=== PATIENT | female | born 1965 | race Caucasian/White ===

== ENCOUNTER 2016-06-27 09:00 | Emergency (ER) | payer OTHER ==
[~2016-06-27] VITALS: Ht 172.7 cm; Wt 68.0 kg
[~2016-06-27 09:00] MED LIST: ALPRAZOLAM0.5 MG PO; HYDRODIURIL 2525 MG PO; LOPRESSOR 25MG25 MG PO; VIIBRYD40 MG PO; ZOFRAN4 M1 SL
[2016-06-27 09:04] VITALS: BP 138/86
--- NOTE | 2016-06-27 09:21 | ED NECK/BACK PAIN COMPLAINT ---
History of Present Illness General Chief Complaint: Low Back Pain/Injury Stated Complaint: LOW BACK PAIN Source: patient Exam Limitations: no limitations Vital Signs & Intake/Output Vital Signs & Intake/Output Vital Signs Date Time Temp Pulse Resp B/P B/P Pulse O2 O2 Flow FiO2 Mean Ox Delivery Rate 06/27 0904 96.8 70 15 138/86 99 Room Air Room Air Allergies Coded Allergies: Sulfa (Sulfonamide Antibiotics) (Intermediate, RASH 06/27/16) escitalopram (From LEXAPRO) (Intermediate, RASH 06/27/16) Reconcile Medications Alprazolam 0.5 MG TAB 0.25 MG PO PRN ANXIETY (Reported) Diazepam (Valium) 5 MG TABLET 1 TAB PO Q6-8 PRN muscle relaxant may cause drowsiness Diclofenac Sodium 75 MG TABLET.DR 1 TAB PO BID PRN pain/inflammation Hydrochlorothiazide (Hydrodiuril 25 MG Tab) 25 MG TAB 25 MG PO DAILY HTN ( Reported) Metoprolol Tartrate (Lopressor) 25 MG TAB 25 MG PO DAILY HTN (Reported) VILAZODONE (Viibryd) 40 MG TAB 20 MG PO DAILY DEPRESSION (Reported) Triage Note: PT TO ED FOR BACK TIGHTNESS THAT STARTED FRIDAY AFTER DOING LOTS OF YARD WORK. WENT TO WALK IN CLINIC FRIDAY AND WAS PRESCRIBED NAPROXEN AND FLEXERIL WITHOUT RELIEF. PAIN OCCASIONALLY RADIATES TO R LEG. Triage Nurses Notes Reviewed? yes HPI: Patient is a 50-year-old female presents complaining of back spasms. Patient reports symptoms began over the weekend when she was doing a lot of yard work. Pain is a pulling/spasming sensation currently severe. Patient was seen at an urgent care clinic on Friday and placed on naproxen and Flexeril with no improvement. Patient has also been doing hot water bottles to the areas with minimal improvement. Patient denies falls, numbness, weakness, incontinence, abdominal pain. Past History Travel History Traveled to [place] past 21 day No Medical History Any Pertinent Medical History? 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 No Review of Systems Review of Systems Constitutional: Denies: chills, fever. Cardiovascular: Denies: chest pain. Gastrointestinal/Abdominal: Denies: abdominal pain. Musculoskeletal: Reports: see HPI. Skin: Reports: no symptoms. Neurological/Psychological: Denies: numbness, paresthesia. Physical Exam Physical Exam General Appearance: well developed/nourished, alert, awake Head: atraumatic, normal appearance Eyes: Bilateral: normal appearance, PERRL, EOMI. Ears, Nose, Throat, Mouth: hearing grossly normal, moist mucous membrane Neck: normal inspection, supple, full range of motion Respiratory: normal breath sounds, no respiratory distress, lungs clear Cardiovascular: regular rate/rhythm Gastrointestinal: soft, non-tender Back: bilateral muscle spasm inferior thoracic left greater than right Extremities: non-tender, normal range of motion Straight Leg Raising: Right: Negative. Left: Negative. DTR: Patellar: 2: L4 Right, L4 Left. Achilles: 2: S1 Right, S1 Left. Neurologic/Psych: no motor/sensory deficits, awake, alert, oriented x 3, normal gait, normal mood/affect Skin: intact, normal color, warm/dry Progress Differential Diagnosis: cauda equina syn, herniated disc, myofascial strain, sciatica, spinal cord inj, T/L spine injury, MUSCLE SPASMS Plan of Care: No acute red flags on exam or by history. Appears stable for conservative management and outpatient follow-up. Departure Departure Time of Disposition: 931 Disposition: HOME OR SELF CARE Condition: Stable Clinical Impression Primary Impression: Spasm of back muscles Referrals: GIORGI FALK,KASSANDRA MORENO MD,[facility] PATIENT HAS NO PRIMARY CARE DR (PCP/Family) Additional Instructions: Follow-up with one of the [facility] primary care providers to establish primary care. Also provided is information for Dr. Moreno and Dr. Ulloa(back specialists). If no improvement within 1 week then contact them for further evaluation. Apply heat to the affected areas for 20 minutes 4-5 times a day. Return to the ER if numbness, weakness, incontinence or worsening of symptoms. Departure Forms: Customer Survey General Discharge Information Prescriptions: Current Visit Scripts Diazepam (Valium) 1 TAB PO Q6-8 PRN muscle relaxant #12 TAB may cause drowsiness Diclofenac Sodium 1 TAB PO BID PRN pain/inflammation #15 TAB
[2016-06-27] MEDS ORDERED: DICLOFENAC SODI75 M2 PO (09:36)
[2016-06-27] MEDS ORDERED: VALIUM5 M2 PO (09:36)
== END 2016-06-27 09:43 ==
LOC: ERH 09:00
DX: M62.830 Muscle spasm of back (principal)

== ENCOUNTER 2016-07-30 20:05 | Emergency (ER) | payer OTHER ==
[~2016-07-30] VITALS: Ht 172.7 cm; Wt 68.0 kg
[~2016-07-30 20:05] MED LIST changes: +DICLOFENAC SODI75 M2 PO; +VALIUM5 M2 PO
[2016-07-30 20:21] VITALS: BP 188/99
[2016-07-30 20:46] LABS: ABSOLUTE BASOPHIL COUNT 0.1 /CUMM (0.0-0.2); ABSOLUTE EOSINOPHIL COUNT 0.2 /CUMM (0.0-0.7); ABSOLUTE GRANULOCYTE CT 5.8 /CUMM (1.4-6.5); ABSOLUTE MONOCYTE COUNT 0.6 /CUMM (0.10-0.60); BASOPHIL % 0.5 % (0.0-2.0); EOSINOPHIL % 1.8 % (0-5); GRANULOCYTE % 54.6 % (42.2-75.2); HEMATOCRIT 44.3 % (37-47); MEAN CORPUSCULAR HGB 30.2 PG (27.0-31.0); MEAN CORPUSCULAR HGB CONC 33.8 G/DL (33.0-37.0); MEAN CORPUSCULAR VOLUME 89.2 FL (81.0-99.0); MEAN PLATELET VOLUME 7.4 FL (7.4-10.4); PLATELET COUNT 294 /CUMM (130-400); RBC DISTRIBUTION WIDTH 14.1 % (11.5-14.5); RED BLOOD CELL CT 4.97 /CUMM (4.20-5.40); WHITE BLOOD CELL COUNT 10.6 /CUMM (4.8-10.8)
--- NOTE | 2016-07-30 21:39 | ED GI/GU/ABDOMINAL COMPLAINT ---
History of Present Illness General Chief Complaint: Abdominal Pain/Flank Pain Stated Complaint: ABD PAIN SINCE 1500 Source: patient, family, old records Exam Limitations: no limitations Vital Signs & Intake/Output Vital Signs & Intake/Output Vital Signs Date Time Temp Pulse Resp B/P B/P Pulse O2 O2 Flow FiO2 Mean Ox Delivery Rate 07/30 2020 97.7 83 16 188/99 99 Room Air ED Intake and Output 07/31 0000 07/30 1200 Intake Total Output Total Balance Patient 150 lb Weight Weight Reported by Patient Measurement Method Allergies Coded Allergies: Sulfa (Sulfonamide Antibiotics) (Intermediate, RASH 06/27/16) escitalopram (From LEXAPRO) (Intermediate, RASH 06/27/16) Reconcile Medications Alprazolam 0.5 MG TAB 0.25 MG PO PRN ANXIETY (Reported) Diazepam (Valium) 5 MG TABLET 1 TAB PO Q6-8 PRN muscle relaxant may cause drowsiness Diclofenac Sodium 75 MG TABLET.DR 1 TAB PO BID PRN pain/inflammation Hydrochlorothiazide (Hydrodiuril 25 MG Tab) 25 MG TAB 25 MG PO DAILY HTN ( Reported) Metoprolol Tartrate (Lopressor) 25 MG TAB 25 MG PO DAILY HTN (Reported) Pantoprazole Sodium (Protonix) 40 MG TABLET.DR 1 TAB PO BID GASTRITIS VILAZODONE (Viibryd) 40 MG TAB 20 MG PO DAILY DEPRESSION (Reported) Triage Note: TRIAGE: C/O MID TO RIGHT UPPER QUADRANT PAIN 9/10. TOOK IBU 800 APPROX 6:30. REPORTS PAIN PROGRESSIVELY GOT WORSE THROUGHOUT THE DAY, WORST AFTER EATING. REPORTS HX OF GALLBLADDER ISSUES YEARS AGO. LAST BM TODAY AND NORMAL. DENIES SYMPTOMS. AFEBRILE. BLUE, SST, LAV, ADAMS, PINK SENT FROM TRIAGE Triage Nurses Notes Reviewed? yes ? N Is pt currently ? No HPI: Patient presents with epigastric and right upper quadrant pain that started earlier this evening. The pain is constant. The pain is an achy sensation. There is no radiation to her back. There is no nausea or vomiting. There is no fevers or chills. There is no bloating. There is no constipation or diarrhea. She rates the pain at 5 out of 10. There are no aggravating or mitigating factors. Past History Travel History Traveled to [place] past 21 day No Medical History Any Pertinent Medical History? 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 No Review of Systems Review of Systems Constitutional: Reports: no symptoms. EENTM: Reports: no symptoms. Respiratory: Reports: no symptoms. Cardiovascular: Reports: no symptoms. GI: Reports: see HPI, abdominal pain. Genitourinary: Reports: no symptoms. Musculoskeletal: Reports: no symptoms. Skin: Reports: no symptoms. Neurological/Psychological: Reports: no symptoms. Hematologic/Endocrine: Reports: no symptoms. Immunologic/Allergic: Reports: no symptoms. All Other Systems: Reviewed and Negative Physical Exam Physical Exam General Appearance: well developed/nourished, alert, awake, mild distress Head: atraumatic, normal appearance Eyes: Bilateral: PERRL, EOMI. Ears, Nose, Throat, Mouth: hearing grossly normal, moist mucous membrane Neck: normal inspection, supple, full range of motion Respiratory: normal breath sounds, chest non-tender, no respiratory distress, lungs clear Cardiovascular: regular rate/rhythm, normal peripheral pulses Gastrointestinal: normal bowel sounds, soft, no organomegaly, NO WOODWARD'S SIGN Back: normal inspection, normal range of motion Extremities: normal range of motion Neurologic/Psych: no motor/sensory deficits, awake, alert, oriented x 3, normal gait, normal mood/affect Skin: intact, normal color, warm/dry Core Measures ACS in differential dx? No Severe Sepsis Present: No Septic Shock Present: No Progress Differential Diagnosis: biliary colic, bowel obstruction, cholecystitis, diverticulitis, gastritis, hepatitis, ischemic bowel, inflamm bowel dis, pancreatitis, peptic ulcer, PUD/GERD Plan of Care: Orders Procedure Date/time Status LIPASE 07/31 2019 Complete COMPREHENSIVE METABOLIC PANEL 07/31 2019 Complete CBC WITHOUT DIFFERENTIAL 07/31 2019 Complete AMYLASE 07/31 2019 Complete Laboratory Tests 07/30/162024: Anion Gap 10, Estimated GFR > 60, BUN/Creatinine Ratio 20.0, Glucose 83, Calcium 9.6, Total Bilirubin 0.5, AST 20, ALT 45, Alkaline Phosphatase 109, Total Protein 6.9, Albumin 4.4, Globulin 2.5, Albumin/Globulin Ratio 1.8, Amylase 54, Lipase 99, CBC w Diff NO MAN DIFF REQ, RBC 4.97, MCV 89.2, MCH 30.2, RDW 14.1, MPV 7.4, Gran % 54.6, Lymphocytes % 37.9, Monocytes % 5.2, Eosinophils % 1.8, Basophils % 0.5, Absolute Granulocytes 5.8, Absolute Lymphocytes 4.0 H, Absolute Monocytes 0.6, Absolute Eosinophils 0.2, Absolute Basophils 0.1, PUBS MCHC 33.8 Diagnostic Imaging: Viewed by Me: CT Scan. Discussed w/RAD: CT Scan. Radiology Impression: PATIENT: PALMA REYES PRESENT AGE: 50 PATIENT ACCOUNT NO: [id number] : 65 LOCATION: [facility] ORDERING PHYSICIAN: HIWOT TANG MD SERVICE DATE: 07/30/16 EXAM TYPE: CAT - CT ABD & PELVIS W IV CONTRAST EXAMINATION: CT ABDOMEN AND PELVIS WITH CONTRAST CLINICAL INFORMATION: Right upper quadrant pain COMPARISON: CT pelvis 03/15/2015 TECHNIQUE: Multidetector volumetric imaging was performed of the abdomen and pelvis before and after the IV administration of 95 mL of Optiray 320 intravenous contrast. Sagittal and coronal reformatted images were obtained on the technologist's workstation. DLP: 381.1 mGy-cm FINDINGS: LUNG BASES: The visualized lung bases are unremarkable. LIVER, GALLBLADDER, AND BILIARY TREE: The liver is normal in size, shape, and attenuation. No focal hepatic lesion or biliary ductal dilatation is present. The gallbladder is unremarkable with no evidence of radiopaque gallstones, gallbladder wall thickening, or obvious pericholecystic inflammatory changes. PANCREAS: Unremarkable. SPLEEN: Unremarkable. ADRENAL GLANDS: Unremarkable. KIDNEYS AND URETERS: The kidneys are normal in size, shape, and attenuation. No hydronephrosis, hydroureter, or calculi seen. No perinephric stranding. BLADDER: Unremarkable. GASTROINTESTINAL TRACT: The small and large bowel are unremarkable. The appendix is unremarkable. ABDOMINAL WALL: No significant hernia is appreciated. LYMPH NODES: Normal. VASCULAR: Atherosclerotic vascular wall calcifications of the distal aorta and common iliac arteries. No aneurysm. PELVIC VISCERA: The uterus is retroverted. No adnexal abnormality. OSSEOUS STRUCTURES: Unremarkable. IMPRESSION: No significant abnormality. DICTATED BY: NEIL HAILE MD DATE/TIME DICTATED:07/30/162216 SENIOR POWER SCHEDULER:LISSET DATE/TIME TRANSCRIBED:07/30/162216 CONFIDENTIAL, DO NOT COPY WITHOUT APPROPRIATE AUTHORIZATION. <Electronically signed in Other Vendor System> SIGNED BY: NEIL HAILE MD 07/30/162228 Initial ED EKG: none Departure Departure Disposition: HOME OR SELF CARE Condition: Stable Clinical Impression Primary Impression: Gastritis Qualifiers: Gastritis type: unspecified gastritis Chronicity: acute Gastritis bleeding: without bleeding Qualified Code: K29.00 - Acute gastritis without bleeding Referrals: PATIENT HAS NO PRIMARY CARE DR (PCP/Family) ASHLY BALTAZAR MD Additional Instructions: AVOID ACIDIC FOODS RETURN FOR ANY CONCERNS Departure Forms: Customer Survey General Discharge Information Prescriptions: Current Visit Scripts Pantoprazole Sodium (Protonix) 1 TAB PO BID #28 TAB
--- NOTE | 2016-07-30 22:29 | CT SCAN REPORT ---
EXAMINATION: CT ABDOMEN AND PELVIS WITH CONTRAST CLINICAL INFORMATION: Right upper quadrant pain COMPARISON: CT pelvis 03/15/2015 TECHNIQUE: Multidetector volumetric imaging was performed of the abdomen and pelvis before and after the IV administration of 95 mL of Optiray 320 intravenous contrast. Sagittal and coronal reformatted images were obtained on the technologist's workstation. DLP: 381.1 mGy-cm FINDINGS: LUNG BASES: The visualized lung bases are unremarkable. LIVER, GALLBLADDER, AND BILIARY TREE: The liver is normal in size, shape, and attenuation. No focal hepatic lesion or biliary ductal dilatation is present. The gallbladder is unremarkable with no evidence of radiopaque gallstones, gallbladder wall thickening, or obvious pericholecystic inflammatory changes. PANCREAS: Unremarkable. SPLEEN: Unremarkable. ADRENAL GLANDS: Unremarkable. KIDNEYS AND URETERS: The kidneys are normal in size, shape, and attenuation. No hydronephrosis, hydroureter, or calculi seen. No perinephric stranding. BLADDER: Unremarkable. GASTROINTESTINAL TRACT: The small and large bowel are unremarkable. The appendix is unremarkable. ABDOMINAL WALL: No significant hernia is appreciated. LYMPH NODES: Normal. VASCULAR: Atherosclerotic vascular wall calcifications of the distal aorta and common iliac arteries. No aneurysm. PELVIC VISCERA: The uterus is retroverted. No adnexal abnormality. OSSEOUS STRUCTURES: Unremarkable. IMPRESSION: No significant abnormality.
[2016-07-30] MEDS ORDERED: PROTONIX40 M3 PO (23:26)
== END 2016-07-30 23:48 ==
LOC: ERH 20:05
PROVIDERS: Emergency Medicine
DX: K29.70 Gastritis, unspecified, without bleeding (principal)
CPT/HCPCS: 74177; 96374; 96375; J0131; J2405